=== PATIENT | female | born 1955 | race Caucasian/White ===

== ENCOUNTER → 2019-11-04 | Outpatient (CLI) | payer MEDICAID | END | disposition home or self-care (01) | LOC: LAB 11:30 | PROVIDERS: ATTEND Orthopaedic Surgery | DX: Z01.818 Encounter for other preprocedural examination (principal); Z11.59 Encounter for screening for other viral diseases | CPT/HCPCS: C9803; U0003 ==

== ENCOUNTER 2019-11-08 05:34 | Inpatient (IN) | payer MEDICAID ==
[~2019-11-08] VITALS: Ht 157.5 cm; Wt 114.1 kg
[2019-11-08 06:43] LABS: BASOPHILS % 0.8 % (0.0-2.0); EOSINOPHILS % 1.2 % (0.0-5.0); LYMPHOCYTES % 31.5 % (20.0-50.0); MEAN CORPUSCULAR HEMOGLOBIN 29.7 pg (28.0-32.0); MEAN CORPUSCULAR VOLUME 87.1 fL (81.0-99.0); MEAN PLATELET VOLUME 8.6 fl (7.4-10.4); MONOCYTES % 5.4 % (2.0-8.0); NEUTROPHILS % 61.1 % (40.0-76.0); PLATELET 356 x1000/uL (130-400); RED BLOOD CELL COUNT 4.71 mill/uL (4.2-5.4); RED CELL DISTRIBUTION WIDTH 14.7 % (11.6-14.6)
[2019-11-08 06:48] LABS: CHLORIDE 105 mEq/L (98-107)
[2019-11-08] MEDS ORDERED: SODIUM CHLORIDE 0.9% 1,000 ML IV SCH ×2 (06:50)
[2019-11-08 06:51] LABS: PARTIAL THROMBOPLASTIN TIME 28.3 sec (23.4-31.0); PROTHROMBIN TIME 10.3 sec (9.6-11.0)
[2019-11-08 06:57] LABS: CLARITY URINE CLOUDY (CLEAR); COLOR URINE YELLOW (YELLOW); KETONES URINE NEGATIVE (NEGATIVE); LEUKOCYTE ESTERASE URINE 2+ (NEGATIVE); NITRITE URINE NEGATIVE (NEGATIVE); OCCULT BLOOD URINE NEGATIVE (NEGATIVE); PH URINE 5.5 (4.5-8.0); PROTEIN URINE TRACE (NEGATIVE); SPECIFIC GRAVITY URINE 1.027 (1.005-1.030)
[2019-11-08] MEDS ORDERED: MORPHINE SULFATE/PF 1MG/ML 10ML AMP ONE (07:33)
[2019-11-08] MEDS ORDERED: BACITRACIN 50,000 UNITS/VIAL ONE (07:34)
[2019-11-08] MEDS ORDERED: BUPIVACAINE/EPINEPH/PF 0.25%/0.0005 10ML ONE (07:34)
[2019-11-08] MEDS ORDERED: VANCOMYCIN HCL 1 GM/VIAL ONE (07:34)
[2019-11-08] MEDS ORDERED: GENTAMICIN SULF 40MG/ML 2ML VIAL ONE (07:34)
[2019-11-08] MEDS ORDERED: TRANEXAMIC ACID 1,000 MG in SODIUM CHLORIDE 0.9% 100 ML IV NR (08:00)
[2019-11-08 08:24] LABS: CLARITY URINE CLEAR (CLEAR); COLOR URINE YELLOW (YELLOW); KETONES URINE NEGATIVE (NEGATIVE); LEUKOCYTE ESTERASE URINE NEGATIVE (NEGATIVE); NITRITE URINE NEGATIVE (NEGATIVE); OCCULT BLOOD URINE NEGATIVE (NEGATIVE); PH URINE 5.5 (4.5-8.0); PROTEIN URINE TRACE (NEGATIVE); SPECIFIC GRAVITY URINE 1.029 (1.005-1.030)
[2019-11-08] MEDS ORDERED: METHYLENE BLUE 50 MG/10 ML AMP IV ONE (08:32)
[2019-11-08] MEDS ORDERED: HYDROMORPHONE HCL/PF 2MG/ML CPJ IV PRN (09:00)
[2019-11-08] MEDS ORDERED: DIPHENHYDRAMINE 50MG/ML VIAL IM PRN (09:00)
[2019-11-08] MEDS ORDERED: NALOXONE HCL 0.4 MG/ML 1ML VIAL IV PRN (09:00)
[2019-11-08] MEDS ORDERED: LABETALOL 5MG/ML SYR 20 MG/4 ML SYRINGE IV PRN (09:00)
[2019-11-08] MEDS ORDERED: MEPERIDINE HCL/PF 25MG/ML CPJ IV PRN (09:00)
[2019-11-08] MEDS ORDERED: ONDANSETRON HCL 4MG/2ML INJ IV PRN ×2 (09:00→12:45)
[2019-11-08] MEDS ORDERED: EPINEPHRINE 1:1000 1 MG/ML AMP ONE (09:25)
[2019-11-08] MEDS ORDERED: GLIM2TAB30 PO (11:06)
[2019-11-08] MEDS ORDERED: PIOG45TA64 PO (11:06)
[2019-11-08] MEDS ORDERED: INSU100I24 SQ (11:06)
[2019-11-08] MEDS ORDERED: ATOR20TA65 PO (11:06)
[2019-11-08] MEDS ORDERED: ERTU1TAB11 PO (11:06)
[2019-11-08] MEDS ORDERED: HYDR25TA PO (11:06)
[2019-11-08] MEDS ORDERED: LISI10TA5 PO (11:06)
[2019-11-08] MEDS ORDERED: ATOR40TA70 PO (11:06)
[2019-11-08] MEDS ORDERED: HYDROMORPHONE PCA 10MG/50ML IV PRN (12:31)
[2019-11-08] MEDS ORDERED: HYDROCODONE/ACETAMINOPHEN 5/325MG TABLET PO PRN ×2 (12:45)
[2019-11-08] MEDS ORDERED: ONDANSETRON INJ IV PRN (12:45)
[2019-11-08] MEDS ORDERED: ACETAMINOPHEN 325MG TABLET PO PRN (12:45)
[2019-11-08] MEDS ORDERED: NALOXONE INJ IV PRN (12:45)
[2019-11-08] MEDS ORDERED: MAGNESIUM HYDROXIDE 400MG/5ML 30ML UDC PO PRN (12:45)
[2019-11-08 16:40] VITALS: BP 114/51
[2019-11-08] MEDS: DOCUSATE SODIUM 100MG CAPSULE PO SCH (18:09)
[2019-11-08 18:36] VITALS: BP 134/62
[2019-11-08] MEDS ORDERED: DEXTROSE 50% WATER 50ML SYRINGE IV PRN (19:15)
[2019-11-08 20:00] VITALS: BP 124/70
[2019-11-08] MEDS ORDERED: ZOLPIDEM TARTRATE 5MG TABLET PO PRN (21:00)
[2019-11-08] MEDS: BLOOD SUGAR DIAGNOSTIC STRIP TEST SCH (21:52)
[2019-11-08] MEDS: ATORVASTATIN CALCIUM 40MG TABLET PO SCH (21:52)
[2019-11-08] MEDS: CEFAZOLIN 2,000 MG in DEXT 5% WATER 100 ML IV SCH (21:52)
[2019-11-08] MEDS: INSULIN GLARGINE UD 100 UNITS/ML SYR SUBCUT SCH (21:53)
[2019-11-08] MEDS: INSULIN LISPRO 100 UNITS/ML SUBCUT SCH (22:23)
[2019-11-09] VITALS: BP 129/61
[2019-11-09 04:00] VITALS: BP 122/54
[2019-11-09] MEDS: CEFAZOLIN 2,000 MG in DEXT 5% WATER 100 ML IV SCH (04:26)
[2019-11-09 05:48] LABS: CHLORIDE 107 mEq/L (98-107)
[2019-11-09 05:57] LABS: LDL CHOLESTEROL 118 mg/dL (5-100)
[2019-11-09 05:58] LABS: HDL CHOLESTEROL 44 mg/dL (40-59)
[2019-11-09 06:41] LABS: BASOPHILS % 0.1 % (0.0-2.0); HEMATOCRIT. 34.1 % (36.0-48.0); HEMOGLOBIN. 11.5 g/dL (12.0-16.0); LYMPHOCYTES % 11.6 % (20.0-50.0); MEAN CORPUSCULAR HEMOGLOBIN 30.1 pg (28.0-32.0); MEAN CORPUSCULAR VOLUME 88.9 fL (81.0-99.0); MEAN PLATELET VOLUME 8.9 fl (7.4-10.4); MONOCYTES % 6.7 % (2.0-8.0); NEUTROPHILS % 81.6 % (40.0-76.0); PLATELET 337 x1000/uL (130-400); RED BLOOD CELL COUNT 3.84 mill/uL (4.2-5.4)
[2019-11-09] MEDS: BLOOD SUGAR DIAGNOSTIC STRIP TEST SCH ×4 (06:51→20:54)
[2019-11-09 08:00] VITALS: BP 139/69
[2019-11-09] MEDS ORDERED: PNEUMOCOCCAL 23-VAL P-SAC VAC 0.5 ML IM ONE (08:00)
[2019-11-09] MEDS: INSULIN LISPRO 100 UNITS/ML SUBCUT SCH ×4 (08:40→20:58)
[2019-11-09] MEDS: LISINOPRIL 10MG TABLET PO SCH (08:51)
[2019-11-09] MEDS: DOCUSATE SODIUM 100MG CAPSULE PO SCH ×2 (08:51→17:39)
[2019-11-09] MEDS: ENOXAPARIN 30MG/0.3ML SYR SUBCUT SCH ×2 (08:57→21:01)
[2019-11-09] MEDS ORDERED: POTASSIUM CHLORIDE 20MEQ TABLET SR PO NR (11:30)
[2019-11-09 12:00] VITALS: BP 132/68
[2019-11-09] MEDS: INSULIN GLARGINE UD 100 UNITS/ML SYR SUBCUT SCH ×2 (12:03→21:37)
[2019-11-09 16:00] VITALS: BP 138/73
[2019-11-09 20:00] VITALS: BP 139/59
[2019-11-09] MEDS: ATORVASTATIN CALCIUM 40MG TABLET PO SCH (20:54)
[2019-11-09] MEDS: METFORMIN HCL 500MG TABLET PO SCH (20:55)
[2019-11-10] VITALS: BP 135/60
[2019-11-10 04:00] VITALS: BP 137/80
[2019-11-10] MEDS: BLOOD SUGAR DIAGNOSTIC STRIP TEST SCH ×3 (06:25→17:20)
[2019-11-10 07:18] LABS: BASOPHILS % 0.3 % (0.0-2.0); EOSINOPHILS % 0.2 % (0.0-5.0); HEMATOCRIT. 32.2 % (36.0-48.0); LYMPHOCYTES % 18.9 % (20.0-50.0); MEAN CORPUSCULAR HEMOGLOBIN 29.6 pg (28.0-32.0); MEAN CORPUSCULAR VOLUME 86.6 fL (81.0-99.0); MEAN PLATELET VOLUME 8.8 fl (7.4-10.4); MONOCYTES % 6.5 % (2.0-8.0); NEUTROPHILS % 74.1 % (40.0-76.0); PLATELET 328 x1000/uL (130-400); RED BLOOD CELL COUNT 3.72 mill/uL (4.2-5.4); RED CELL DISTRIBUTION WIDTH 14.7 % (11.6-14.6)
[2019-11-10 08:00] VITALS: BP 149/66
[2019-11-10] MEDS: DOCUSATE SODIUM 100MG CAPSULE PO SCH ×2 (08:27→17:00)
[2019-11-10] MEDS: METFORMIN HCL 500MG TABLET PO SCH ×2 (08:27→17:50)
[2019-11-10] MEDS: ENOXAPARIN 30MG/0.3ML SYR SUBCUT SCH (08:27)
[2019-11-10] MEDS: LISINOPRIL 10MG TABLET PO SCH (08:29)
[2019-11-10] MEDS: INSULIN LISPRO 100 UNITS/ML SUBCUT SCH ×3 (09:02→17:50)
[2019-11-10] MEDS: INSULIN GLARGINE UD 100 UNITS/ML SYR SUBCUT SCH (10:00)
[2019-11-10 12:00] VITALS: BP 124/64
[2019-11-10 16:00] VITALS: BP 127/59
== END 2019-11-10 20:47 | disposition home or self-care (01) | DRG 302 ==
LOC: OR 05:34 → 6EST 05:35 → EDUNIT# 07:30
PROVIDERS: ADMIT Orthopaedic Surgery; ATTEND Orthopaedic Surgery
PROC: 0SRC0J9 Replacement of Right Knee Joint with Synthetic Substitute, Cemented, Open Approach (ICD-10-PCS; principal; 2019-11-08)
DX: M17.11 Unilateral primary osteoarthritis, right knee (principal); E11.65 Type 2 diabetes mellitus with hyperglycemia; E66.9 Obesity, unspecified; E78.00 Pure hypercholesterolemia, unspecified; E87.6 Hypokalemia; Z96.652 Presence of left artificial knee joint; E78.5 Hyperlipidemia, unspecified; G89.29 Other chronic pain; I10 Essential (primary) hypertension; M65.9 Synovitis and tenosynovitis, unspecified; Z68.42 Body mass index [BMI] 45.0-49.9, adult; Z79.4 Long term (current) use of insulin
CPT/HCPCS: 36415; 71045; 73560; 80048; 80053; 80061; 81003; 82962; 83036; 84145; 85025; 86850; 86900; 88305; 88311; 93005; 97110; 97116; 97162; 97166; 97530; C1713; C1776; J0171; J0690; J1170; J1580; J1650; J1815; J2274; J2405; J3370; J3490; J7050; J7060; L1830; Q9968